=== PATIENT | female | born 1985 | race Caucasian/White ===

== ENCOUNTER 2016-10-05 10:53 | Emergency (ER) | payer BC ==
[~2016-10-05] VITALS: Ht 160 cm; Wt 68.0 kg
[2016-10-05 10:55] VITALS: Ht 160 cm; Wt 68.0 kg
[2016-10-05] MEDS ORDERED: KETOROLAC 15 MG INJ IV STA (11:13)
--- NOTE | 2016-10-05 11:29 | ERD ---
ER Documentation Chief Complaint Date/Time DATE: 10/05/16 TIME: 11:24 Chief Complaint ANXIETY STARTED THIS MORNING FEELS ANXIOUS HPI 31-year-old female history of anxiety, no control who presents with tachycardia, anxiety and shortness of breath. She states that while driving she started to have left-sided chest pain that was sharp, pleuritic and nonradiating. No recent travel, immobilization, surgery, family history of DVT. She does not take control. She is feeling extremely anxious and was hyperventilating with EMS. She denies any exertional symptoms, no family history of early cardiac disease. The patient is a smoker. ROS All systems reviewed and are negative except as per history of present illness. Medications Home Meds Active Scripts Ibuprofen* (Motrin*) 800 Mg Tab, 800 MG PO Q6H Y for PAIN AND OR ELEVATED TEMP, #30 TAB Prov:NIGHAT SUAREZ MD 10/05/16 PMhx/Soc Medical and Surgical Hx: pt denies Medical Hx FmHx Family History: No coronary disease, No diabetes Physical Exam Vitals Vital Signs Date Time Temp Pulse Resp B/P Pulse Ox O2 Delivery O2 Flow Rate FiO2 10/05/16 10:55 99.8 108 18 152/77 100 Physical Exam General: Well developed, well nourished, no acute distress Head: Normocephalic, atraumatic. Eyes: Pupils equally reactive, EOM intact ENT: Moist mucous membranes Neck: Supple, no lymphadenopathy Respiratory: Lungs clear bilaterally, no distress Cardiovascular: RRR, no murmurs, rubs, or gallops Abdominal: Soft, non-tender, non-distended, no peritoneal signs : Deferred MSK: No edema, no unilateral swelling, 5/5 strength, no pulse deficits Neurologic: Alert and oriented, moving all extremities, normal speech, no focal weakness, no cerebellar signs Skin: No rash Psych: Extremely anxious Result Diagram: 10/05/16 1145 10/05/16 1145 Results 24 hrs Laboratory Tests Test 10/05/16 11:45 10/05/16 11:55 Activated Partial Thromboplast Time 29.2Sec Anion Gap 16 Basophils # 0.010^3/ul Basophils % 0.1% Blood Urea Nitrogen 8mg/dl Calcium Level 9.1mg/dl Carbon Dioxide Level 24mmol/L Chloride Level 106mmol/L Creatinine 0.50mg/dl D-Dimer 304.47ng/ml D-Dimer Comment Eosinophils # 0.010^3/ul Eosinophils % 0.2% Glucose Level 103mg/dl Hematocrit 38.4% Hemoglobin 13.2g/dl INR International Normalized Ratio 0.99 Lymphocytes # 1.310^3/ul Lymphocytes % 10.7% Mean Corpuscular Hemoglobin 30.7pg Mean Corpuscular Hemoglobin Concent 34.3g/dl Mean Corpuscular Volume 89.5fl Mean Platelet Volume 8.0fl Monocytes # 0.510^3/ul Monocytes % 4.4% Neutrophils # 10.210^3/ul Neutrophils % 84.6% Nucleated Red Blood Cells # 0.010^3/ul Nucleated Red Blood Cells % 0.0/100WBC Platelet Count 16138^3/UL Potassium Level 4.0mmol/L Prothrombin Time 13.1Sec Prothrombin Time Ratio 1.0 Red Blood Count 4.2910^6/ul Red Cell Distribution Width 13.4% Sodium Level 142mmol/L Troponin I < 0.012ng/ml White Blood Count 12.010^3/ul Bedside Urine Blood Trace-lysed Bedside Urine Glucose (UA) Negative Bedside Urine Ketones (LAB) Negative Bedside Urine Leukocyte Esterase (L Trace Bedside Urine Nitrite (LAB) Negative Bedside Urine Protein (LAB) Negative Bedside Urine pH (LAB) 7.5 Current Medications Medications (Trade) Dose Ordered Sig/Feliz Route PRN Reason Start Time Stop Time Status Last Admin Dose Admin Ketorolac Tromethamine (Toradol) 15 mg ONCE STAT IV 10/05/16 11:13 10/05/16 11:15 DC 10/05/16 11:58 Procedures/MDM EKG, MONITORS, & DIAGNOSTIC IMAGING: EKG: I reviewed and interpreted a 12-lead EKG. Rhythm: Slight sinus tachycardia Ectopy: None Intervals: No abnormalities ST segments: No elevations or depressions T waves: No contiguous inversions Chest x-ray: I reviewed and interpreted a 1 view of the chest Mediastinum: No enlargement Cardiac silhouette: No cardiomegaly Airspace: Clear lung clemens bilaterally without evidence of pneumothorax Bones: No evidence of fracture LAB INTERPRETATION: Slight nonspecific leukocytosis, negative troponin, negative d-dimer MEDICAL DECISION MAKING: The patient's history, physical exam and clinical presentation is most consistent with pleurisy, musculoskeletal pain versus anxiety attack. Very low clinical concern for ACS given low risk profile, atypical symptoms and age. Consider possible pulmonary embolism, she does not qualify for PERC rule out criteria given her tachycardia however no other risk factors. Better alternative diagnosis however I believe the d-dimer would be appropriate. Very low pretest probability. Based on the patient's clinical exam and history and risk factors, I have a much lower clinical concern for pulmonary embolism, acute aortic dissection, pneumothorax, pneumonia, cardiac tamponade HEART Score: 1 MACE Rate: Less than 1.7% Shared Decision Making: We had a conversation regarding risk stratification, MACE rate, and the risks, benefits, alternatives of disposition planning options. Disposition planning: I would not recommend inpatient hospitalization at this time given low risk profile, better alternative diagnosis, no exertional symptoms, normal EKG. The patient does not wish to have serial enzymes. ER COURSE: The patient was given Toradol, she was offered anxiety medication but refused. The patient continues to be well-appearing her d-dimer is negative. No indication for CT PE study. This is most consistent with likely pleurisy versus viral process. No indication for antibiotics. No evidence of myocarditis or pericarditis. Nonsteroidal anti-inflammatories and outpatient management will be appropriate. I kept the patient and/or family informed of laboratory and diagnostic imaging results throughout the emergency room course. DISPOSITION PLAN: We discussed follow up with the patient's primary care doctor within 24 to 48 hours as needed. We also discussed return to the emergency room for worsening symptoms or worsening condition. Discharge Medications: Motrin Departure Diagnosis: Primary Impression: Pleurisy Additional Impression: Anxiety attack Condition: Stable NIGHAT SUAREZ MD Oct 05, 2016 11:29
--- NOTE | 2016-10-05 11:42 | RADRPT ---
PROCEDURE: XR Chest. CLINICAL INDICATION: Chest pain. TECHNIQUE: Single frontal view of the chest was obtained COMPARISON: No. FINDINGS: The heart is normal in size. The left-sided aorta is normal. The trachea and hilar structures are normal. The lungs are clear. The diaphragms are flattened. No pleural effusion is noted. The bon y elements are normal. No acute infiltrate is identified. IMPRESSION: 1. Pulmonary hyperinflation with no evidence of active cardiopulmonary disease. RPTAT:AAJJ Physician Andre Date Time Electronically viewed and signed by Ab Islas Physician on 10/05/2016 11:42 JACOB/
[2016-10-05 11:53] LABS: URINE BLOOD (Dip) POC Trace-lysed (NEGATIVE)
[2016-10-05 12:08] LABS: CHLORIDE 106 mmol/L (97-110); SODIUM 142 mmol/L (135-144)
[2016-10-05 12:10] LABS: INR 0.99; PARTIAL THROMBOPLASTIN TIME 29.2 Sec (25.0-35.0); PROTIME 13.1 Sec (12.2-14.2)
[2016-10-05 12:11] LABS: ANION GAP 16 (8-16); BLOOD UREA NITROGEN 8 mg/dl (7-20); CALCIUM 9.1 mg/dl (8.4-10.2); CARBON DIOXIDE 24 mmol/L (21-31); GLUCOSE 103 mg/dl (70-220)
[2016-10-05 12:13] LABS: D-DIMER 304.47 ng/ml (<460)
[2016-10-05 12:15] LABS: BASOPHILS % 0.1 % (0.0-2.0); EOSINOPHILS % 0.2 % (0.0-7.0); HEMATOCRIT 38.4 % (37.0-47.0); HEMOGLOBIN 13.2 g/dl (12.0-16.0); LYMPHOCYTES # 1.3 10^3/ul (0.8-2.9); LYMPHOCYTES % 10.7 % (15.0-51.0); MEAN CORPUSCULAR HEMOGLOBIN 30.7 pg (29.0-33.0); MEAN CORPUSCULAR HGB CONC 34.3 g/dl (32.0-37.0); MEAN CORPUSCULAR VOLUME 89.5 fl (82.0-101.0); MONOCYTE # 0.5 10^3/ul (0.3-0.9); MONOCYTES % 4.4 % (0.0-11.0); NEUTROPHIL # 10.2 10^3/ul (1.6-7.5); NEUTROPHILS % 84.6 % (39.0-77.0); PLATELET COUNT 262 10^3/UL (140-440); RED BLOOD COUNT 4.29 10^6/ul (4.20-5.40); RED CELL DISTRIBUTION WIDTH 13.4 % (11.5-14.5)
[2016-10-05 12:19] LABS: CONDITION 1
[2016-10-05 12:24] LABS: TROPONIN-I < 0.012 ng/ml (0.00-0.12)
[2016-10-05] MEDS ORDERED: IBUP800T25 PO (12:26)
== END 2016-10-05 13:58 | disposition home or self-care (01) ==
LOC: FTE 10:53
DX: R09.1 Pleurisy (principal); F41.9 Anxiety disorder, unspecified
CPT/HCPCS: 36415; 71010; 80048; 81003; 84484; 85025; 85378; 85610; 85730; 93005; 96374; 99285; J1885